=== PATIENT | male | born 1985 | race Caucasian/White ===

== ENCOUNTER 2023-10-08 09:16 | Day surgery (SDC) | payer BC ==
[~2023-10-08] VITALS: Ht 180.3 cm; Wt 81.0 kg
[2023-10-08] MEDS ORDERED: LR 1,000 ML IV ONE (10:45)
[2023-10-08] MEDS ORDERED: Famotidine 20 MG TAB PO SCH (10:45)
[2023-10-08] MEDS ORDERED: NORCO 325 MG-51 TAB PO (11:00)
[2023-10-08] MEDS ORDERED: JARDIANCE25 (11:00)
[2023-10-08] MEDS ORDERED: FLEXERIL5 MG PO (11:01)
[2023-10-08] MEDS ORDERED: FENTANYL 25 MCG TD (11:01)
[2023-10-08] MEDS ORDERED: fentaNYL 50 MCG/ML 2 ML VIAL ONE (11:15)
[2023-10-08] MEDS ORDERED: oxyCODONE/Acetaminophen 5-325 MG TAB PO PRN (11:15)
[2023-10-08] MEDS ORDERED: Hyoscyamine 0.125 MG Sublingual TAB SL PRN (11:15)
[2023-10-08] MEDS ORDERED: Lidocaine PF 2% (20 MG/ML) 5 ML VIAL ONE (11:15)
[2023-10-08] MEDS ORDERED: Ketorolac 15 MG/ML VIAL IV PRN (11:15)
[2023-10-08] MEDS ORDERED: Ondansetron 4 MG/2 ML VIAL ONE (11:38)
[2023-10-08] MEDS ORDERED: dexAMETHasone 10 MG/ML VIAL ONE (11:38)
[2023-10-08] MEDS ORDERED: HYDROmorphone 1 MG/1 ML SYRINGE [PACU/SDC ONLY] IV PRN (11:45)
[2023-10-08] MEDS ORDERED: Ondansetron 4 MG/2 ML VIAL IV PRN (11:45)
[2023-10-08] MEDS ORDERED: droPERidol 2.5 MG/ML 2 ML VIAL IV PRN (11:45)
[2023-10-08] MEDS ORDERED: Meperidine 50 MG/ML 1 ML VIAL IV PRN (11:45)
[2023-10-08] MEDS ORDERED: fentaNYL 50 MCG/ML 1 ML SYRINGE/VIAL [PACU/SDC ONLY] IV PRN (11:45)
[2023-10-08] MEDS ORDERED: Morphine 2 MG/1 ML VIAL [PACU/SDC ONLY] IV PRN (11:45)
[2023-10-08] MEDS ORDERED: Lidocaine 2% (20 MG/ML) 20 ML UROJET UR ONE (12:05)
[2023-10-08 12:45] VITALS: BP 117/74; PULSE 76; TEMP 97.6
[2023-10-08 13:00] VITALS: BP 106/69; PULSE 72
[2023-10-08 13:15] VITALS: BP 122/71; PULSE 72
[2023-10-08 13:26] VITALS: BP 108/70; PULSE 85; TEMP 97.9
--- NOTE | 2023-10-08 13:35 | NUR ---
1245 RETURNS TO ROOM 5 PER CART. AWAKE, ALERT. HOB ELEVATED 50 DEGREES. VITAL SIGNS OBTAINED. ABD SOFT. DENIES DISCOMFORT. CALL LIGHT AT SIDE, IN ROOM 1300 TOLERATEES PO JUICE AND MUFFIN WITHOUT NAUSEA 1310 DISCHARGE INSTRUCTIONS REVIEWED. PATIENT VERBALIZES UNDERSTANDING. COPY PROVIDED IN DISCHARGE FOLDER 1325 SITS ON EDGE OF CART. DRESS SELF, THEN AMBULATES TO BATHROOM WITH STANDBY ASSIST. ADMITS TO VOIDING WITHOUT DIFFICULTY
[2023-10-08 15:32] VITALS: BP 117/74; PULSE 78; TEMP 97.5
== END 2023-10-08 13:35 | disposition home or self-care (01) ==
LOC: SDCO 09:16
DX: N20.2 Calculus of kidney with calculus of ureter (principal); F17.210 Nicotine dependence, cigarettes, uncomplicated; F17.290 Nicotine dependence, other tobacco product, uncomplicated; Z86.16 Personal history of COVID-19
CPT/HCPCS: C1769; C2617; J0690; J1100; J2405; J2704; J3010; J7120